=== PATIENT | female | born 1970 | race Caucasian/White ===

== ENCOUNTER 2024-08-29 16:28 | Emergency (ER) | payer BC, SELFPAY ==
[2024-08-29 16:30] VITALS: BP 150/34
--- NOTE | 2024-08-29 16:36 | ED.GENMED ---
Addendum entered and electronically signed by Ritika Urena PA-C 09/02/24 20:47:
2 cm laceration irrigated thoroughly and cleaned, repaired with Dermabond, patient tolerated the procedure well
Original Note:
History of Present Illness
<Ritika Urena PA-C - Last Filed: 08/29/24 20:10>
General
Chief Complaint: Skin Surface Trauma
Source: patient
Exam Limitations: none
Time Seen by Provider: 08/29/24 16:36
Nursing documentation reviewed up to this point in time: agreed with
History of Present Illness
History of Present Illness:
54-year-old female with no past medical history presents emergency department today with concerns of laceration to the left thumb and left second digit following opening a can with a manual can toddler guide. This occurred recently. Patient denies any
other injuries, she denies any falls, she denies any bony tenderness. She states that she has not had a tetanus vaccination within the last 5 years. She has not take any blood thinners. She denies any paresthesias in the thumb, any loss of
sensation, any inability to move the thumb. Immediately after the injury, she rinsed out the wound with cold tap water and applied ice to the wound. She not take anything for pain today.
Review of Systems
<Ritika Urena PA-C - Last Filed: 08/29/24 20:10>
Review of Systems
All Other Systems: ROS reviewed and negative except as documented in HPI and ROS
Phy Exam
<Ritika Urena PA-C - Last Filed: 08/29/24 20:10>
Physical Exam
Physical Exam:
General: Patient is well appearing and in no acute distress; non-toxic
Skin: Warm and dry, small laceration noted to the left thumb and the left second digit, active bleeding noted, pressure applied
Head: Normocephalic, atraumatic
Eyes: Sclera non-icteric. EOMs intact.
Cardiac: Regular rate
Pulm: Normal respiratory effort
Musculoskeletal: No bony tenderness palpation of the phalanges noted, 5 out of 5 strength
Neuro: CN II-XII intact, no focal neurologic deficits. Sensation intact light touch, good to point discrimination
Psychiatric: Appropriate mood and affect.
Course
<Ritika Urena PA-C - Last Filed: 08/29/24 20:10>
Orders/Labs/Results
Orders:
Orders
08/29/24 17:42
Tetanus/Diphth/Acelpertussis [Adacel] 0.5 ml IM .ONCE ONE
Vital Signs
Initial and Last Documented VS:
Initial Vital Signs
Temp Pulse Resp BP Pulse Ox
98 F 88 18 150/34 99
08/29/24 16:30 08/29/24 16:30 08/29/24 16:30 08/29/24 16:30 08/29/24 16:30
Last Documented Vital Signs
Temp Pulse Resp BP Pulse Ox
98 F 88 18 150/34 99
08/29/24 16:30 08/29/24 16:30 08/29/24 16:30 08/29/24 16:30 08/29/24 16:30
<Roverto Zavala MD - Last Filed: 08/29/24 18:41>
Orders/Labs/Results
Orders:
Orders
08/29/24 17:42
Tetanus/Diphth/Acelpertussis [Adacel] 0.5 ml IM .ONCE ONE
Vital Signs
Initial and Last Documented VS:
Initial Vital Signs
Temp Pulse Resp BP Pulse Ox
98 F 88 18 150/34 99
08/29/24 16:30 08/29/24 16:30 08/29/24 16:30 08/29/24 16:30 08/29/24 16:30
Last Documented Vital Signs
Temp Pulse Resp BP Pulse Ox
98 F 88 18 150/34 99
08/29/24 16:30 08/29/24 16:30 08/29/24 16:30 08/29/24 16:30 08/29/24 16:30
<Ritika Urena PA-C - Last Filed: 08/29/24 20:10>
MDM/Problems Addressed
Differential Diagnosis Includes:
Differentials include abrasion, laceration, tendon injury, neurovascular injury
MDM/Problems Addressed:
54-year-old female with no past medical history presents emergency department today with concerns of laceration to left thumb and left second digit. These lacerations were repaired with Dermabond. Prior to repair, the lacerations were thoroughly
cleaned with saline and wound cleanser. Patient tolerated the procedure well. Tetanus was updated. Patient stable for discharge.
Chronic conditions affecting care:
n/a
Acute Exacerbation and/or Progression of Chronic Illness:
n/a
<Ritika Urena PA-C - Last Filed: 08/29/24 20:10>
*Pulse Oximetry
Patient hypoxic: no
*Critical Care Note
Total Time (30-74mins, 75-104mins- exclusive of procedures): Not Applicable
Data Reviewed
Review of Other/Old Records Reveals: Records (No previous ER physician documentation to review in [facility]) and Discharge Summary (No discharge summaries to review)
Source: patient and records
Prescriptions/Medications Considered But Not Given:
n/a
Further Testing Considered But Not Given:
n/a
ED Attending Note
<Ritika Urena PA-C - Last Filed: 08/29/24 20:10>
-
Portions of this chart may have been created with voice recognition software.� Occasional wrong word or��sound alike� substitutions may have occurred due to the inherent limitations of voice recognition software.
<Roverto Zavala MD - Last Filed: 08/29/24 18:41>
ED Attending Note
Patient seen and examined by attending physician: Yes
I performed the substantive portion of visit, reviewed & personally made and approve the management plan that is documented in note by myself or WILLIAM.: Yes
ED Attending Note:
Patient cut her tuft of her thumb on a can lid. Sterilely glued. Well opposed. Motor or sensory neurovascular intact.
Discharge Plan
Departure
Patient Disposition: Home (Routine Discharge)
Date of Disposition: 08/29/24
Time of Disposition: 18:42
Patient with high blood pressure during this ER visit?: Yes
Condition: Good
Discharge Problem:
Laceration of thumb
Instructions: Laceration Repair With Glue (DC), BLOOD PRESSURE
Referrals:
UNKNOWN - PT DOES,NOT KNOW [Family Provider] -
Activity Restrictions/Additional Instructions:
Please keep the wound dry for 24 hours. After 24 hours, you can let mild soapy water run over the wound. Please do not scrub the wound.
The glue will fall off as the wound heals. If you have surrounding redness to the wound, purulent drainage from the wound, increasing pain, please return to the emergency department.
Interventions
Interventions:
*Risk Screen - Suicide Last Done: 08/29/24 16:30
*General Assessment Last Done: 08/29/24 16:30
*Neglect/Abuse Screening Last Done: 08/29/24 16:30
ED- Fall Risk Assessment Last Done: 08/29/24 16:40
*ED COVID-19 Vaccine History Last Done: 08/29/24 16:38
*Nursing Disposition Last Done: 08/29/24 18:47
ED-Skin Assessment Last Done: 08/29/24 16:38
Discharge Date and Time
Discharge Date/Time: 08/29/24 18:48
Print Language: ESTONIAN
[2024-08-29 16:38] VITALS: BMI 21.0
[2024-08-29] MEDS: ADACEL 0.5 ML IM (17:46)
== END 2024-08-29 18:48 | disposition home or self-care (01) ==
LOC: EMR 16:28
PROVIDERS: EMERGENCY PHYSICIAN Emergency Medicine
DX: S61.012A Laceration without foreign body of left thumb without damage to nail, initial encounter (principal); S61.211A Laceration without foreign body of left index finger without damage to nail, initial encounter; W27.4XXA Contact with kitchen utensil, initial encounter; Z23 Encounter for immunization
CPT/HCPCS: 99283; 12001; 90471; 90715